=== PATIENT | female | born 1975 | race Caucasian/White ===

== ENCOUNTER 2017-08-20 05:36 | Day surgery (SDC) | payer OTHER ==
[2017-08-20] MEDS ORDERED: LIDOCAINE 1% 2 ML INJ ID PRN (06:36)
[2017-08-20] MEDS ORDERED: LR 1,000 ML IV ONE (06:36)
[2017-08-20] MEDS ORDERED: LIDOCAINE 1% 2 ML INJ ONE (06:37)
[2017-08-20] MEDS ORDERED: PREGABALIN 150 MG CAP PO ONE (06:38)
[2017-08-20] MEDS ORDERED: ACETAMINOPHEN 500 MG TAB PO ONE (06:38)
[2017-08-20] MEDS ORDERED: ceFAZolin 2 GM/SWFI 2 GM/20 ML SYR IVP ONE (06:38)
--- NOTE | 2017-08-20 06:38 | PDHPUP ---
History & Physical Update H&P update statement: This history and physical update is based on an assessment of the patient which was completed after admission or registration (within 24 hours), but prior to the surgery/procedure. H&P update: no change in patient's condition since H&P completed
[2017-08-20] MEDS ORDERED: fentaNYL 250 MCG/5 ML INJ ONE (06:48)
[2017-08-20] MEDS ORDERED: PROPOFOL/EMULSION 500 MG/50 ML BOTTLE IV ONE ×2 (06:48→06:51)
[2017-08-20] MEDS ORDERED: MIDAZOLAM 2 MG/2 ML VIAL IVP ONE (06:49)
[2017-08-20] MEDS ORDERED: EPINEPHrine 30 MG/30 ML MDV (0.1 MG/0.1 ML) ONE (06:56)
[2017-08-20] MEDS ORDERED: BUPIVACAINE 0.25% 30 ML SDV ONE (06:56)
[2017-08-20] MEDS ORDERED: SCOPOLAMINE HYDROBROMIDE 1 MG/3 DAYS PATCH TD ONE (07:13)
--- NOTE | 2017-08-20 07:13 | PDGENHP ---
History and Physical - Chief Complaint Right hip pain - History of Present Illness 1. Bilateral~Femoroacetabular impingement (ANA) Cam type, with~resultant labral tear; RIGHT SIDE SYMPTOMATIC 2. RIGHT GT bursitis HISTORY OF PRESENT ILLNESS: Maliis a 42 y.o.~very ~active female~who I have had the pleasure to consult on today. I have enjoyed meeting her. She~lives in [place]. ~Maliworks as a [employer]. ~She~is partnered; she~has no~children. ~Mali enjoys fotobabble triathlon, skiing, hiking, endurance sports. Judith's right~hip pain started in 2008, with no~recalled trauma or injury, and with no~previous complaints. Malidoes not have~a known history of hip dysplasia. Presentation today is of lateral right~hip pain. ~The hip does~wake her~at night and does~click and catch on her. Sitting can be uncomfortable~for her. Malidoes~report suffering from lower back pain episodes. Malihas~participated in physical therapy for approximately one year and has~ tried other conservative measures including hip injections (3 x GT bursa temporary 2008, 2015, 2017), PRP in RIGHT hip joint that Dr. Carrillo (with some relief)~dry needling, chiropractic treatments and massage therapy. She~has~ received sufficient symptomatic improvement. Malihas~utilized medication for pain management, including NSAID. Mali has used medication for 7 months. Malidenies issues with the left~hip. ~ Maliunderstands that she~has a hip and pelvis problem which should be researched and wishes to get a better understanding of her~hip status, followed by an establishment of a treatment strategy, hoping she~would be able to get back to her~well being active life. History: Past medical history: ~ None which is relevant Relevant familial history: Father - Heart Disease ~~~~~~~~~~~~~~~~~~~~~~~~~~~~~~~~~~~~~~~Mother - Diabetic Past surgical history: No. Surgery Anesthesia Year Outcome 1 Right Ankle Peroneal Repair GA 02/2014 Good 2 Right Ankle Neuroma GA 07/2015 Good 3 Appendix GA 2005 Good Malidenies problematic issues with general anesthesia in the past. I have reviewed, verified and agree with the past medical, surgical, family and social history. Current Medications:~has a current medication list which includes the following prescription(s): atenolol, diclofenac sodium 1%, lidocaine 5% (700 mg/patch), montelukast, naproxen, and norgestrel-ethinyl estradiol. ALLERGIES:~has No Known Allergies. Objective: Physical Examination: Maliis 5~feet 6~inches tall and weighs 160~Lbs. Maliis AAO x3; she~is well-nourished, in NAD. Skin is warm and dry. ~Breathing is non-labored. ~CV with RRR by pulse. Abdomen is soft, NTND. Currently, she~walks with a normal~gait. Trendelenburg sign is negative~and proprioception is normal, both~sides. She~presents with mild~signs of joint laxity. Beightons Score: 0-2 Lower spine examination is negative~for sciatic or femoral nerve irritation with negative~SLR &~femoral stretch tests. Range of motion of the spine is normal~for flexion, extension, and rotations, with no~associated pain. Strength, Sensation and pulses are normal - bilaterally~except numbness on the top of right foot after foot surgery. Ankles and knees exams are normal~and no~mal-alignment is evident. She~has left~.25~cm short leg length discrepancy. Thigh circumference is symmetric~with no evidence for muscle atrophy~on both~ sides. Hip ROM (degrees): FL ER At 90~hip FL IR At 90~hip FL AB AD EX IR Neutral hip ER Neutral hip R 100 50 20 35 5 10 30 35-40 L 100 45 20 35 5 15 35 15 Specific hip and pelvis tests: Quadrant DEE Roll Add. Longus R +++ +++ + Negative L Negative Negative Negative Negative Glut. Med ITB Pos. Imp R +++ 5/5 strength Negative 5/5 strength Negative L Negative 5/5 strength Negative 5/5 strength Negative Squeeze test measured normal Bony Symphysis pubis is painful~to touch~while concentric activity of the rectus abdominis, does not~produce pain at its insertion. Ilio Psos specific tests are positive for pain during cycling for both hips~and remarkable for painful snap HF has no pain both hips. Anterior and lateral~capsule tenderness on the right. Greater trochanteric burse is minimally painful~on both hips. Piriformis tests: FAIR is negative, with no~local signs of neuritis related to sciatic nerve. SIJs examination is normal~with normal~DEE in relation and local tenderness. Hamstrings tests are negative~functional contraction and negative~tendinopathy both hips. On a daily basis, the following percentages reflect Judith's overall total pain : Deep hip: 70% Glut med: 30% Imaging: Radiology studies which I have personally reviewed, analyzed and measured are below: XR: AP of the hip and pelvis: Performed in a good~technique Coccyx at the level of the~pubic symphysis 0~degrees [place] Lines are preserved. Minimal~Pathological signs are seen in the Symphysis Pubis. Minimal~Pathological signs are seen at the Ischial tuberosity. ~ Specific measurements show: NSA~ LCE Sourcil~Angle Sharp's angle Lat. Cam Lat. Pincer C.Over~sign Head~Coverage % ATDmm R N 31 4 38 + - - N N L N 27 5 42 + - - N N Pos. wall sign ISS NAD ~~Dysplasia Comments R Negative Negative 16~mm Negative L Negative Negative 16~mm Negative Sclerosis Sup. Lat. OA Cysts Joint Space-WBZ Joint Space-Medial R Negative Negative Negative 3.3~mm 3.2~mm L Negative Negative Negative 3.7~mm 3.4~mm X Table lateral: Anterior cam lesion is seen~on both hips. Alpha Angle: ~ Right 68~dergrees Left 77~degrees MRI shows: good cartilage coverage, no bone edema, labral tear Impression and plan: Maliis a 42 y.o.~active female~suffering from symptomatic right~hip pain due to Bilateral~Femoroacetabular impingement (ANA) Cam type, with~resultant labral tear~causing significant disability to her~and altering her~sport and life activities. Physical examination, imaging, and her~story correspond with the diagnosis mentioned above. I explained that femoroacetabular impingement (ANA) arises due to a bony or soft tissue conflict between the femur (ball) and acetabulum (socket) caused by an abnormality in the shape of the hip joint. Over time, repetitive impingement can result in damage to the labrum and adjacent surface cartilage within the socket, ultimately giving rise to progressive osteoarthritis of the hip. I explained that although a labral tear can be a source of pain, it is rarely the root of the problem and typically occurs secondary to an underlying abnormality in the shape and mechanics of the hip joint. ~ I reviewed conservative treatment options for ANA including activity modification to avoid positions of impingement, physical therapy, non-steroidal anti-inflammatory medications, and various injections (corticosteroid and PRP) aimed at reducing inflammation in the hip joint or/and preventing dynamic impingement. PRP injections may promote healing and reduce symptoms in certain cases but it will not repair chronically damaged tissue. Although these measures may help to buy time and reduce current level of symptoms, they are not a definitive solution to the problem given the underlying abnormality in the shape of the hip joint. Patients who have failed conservative management and continue to experience symptoms are candidates for hip arthroscopy, a minimally invasive surgery that can definitively address the underlying problem. Hip arthroscopy typically includes treating the labrum with either repair or reconstruction of the torn labrum; as well as addressing the underlying abnormalities by restoring the normal shape to the hip joint. ~If the cartilage is damaged a Microfracture surgical procedure may also be necessary to help stimulate the growth of fibrocartilage. ~If a patient requires a labral reconstruction or a Microfracture, the initial rehabilitation from the surgery may take longer, but the remote computer terminal operator results are typically favorable. I reviewed the technical aspects of hip arthroscopy including risks, benefits, and expected course of recovery. Judith~understands that hip arthroscopy is a minimally invasive outpatient procedure carried out through small incisions on the outer aspect of the hip joint. During surgery, the labral tear will be identified and either repaired or reconstructed~using bone anchors and suture material. Additionally, any excessive bone will be removed with a high-speed harlan to reshape the hip joint and restore normal anatomy. Risks include infection, bleeding, injury to nearby nerves or vessels, stiffness, persistent pain, instability, venous thromboembolic disease, and traction related complications including temporary foot numbness. Rarely, revision surgery may be required to address these problems. Overall recovery takes approximately 4~ 8~months depending on the extent of damage and degree of repair. In the event that the labral tissue quality is inadequate for successful repair and healing, Maliunderstands that a labral reconstruction will be performed. This procedure entails placing a cadaver tissue graft within the hip joint and stabilizing it with bone anchors to build a new labrum. The overall recovery time for labral reconstruction is similar to that of labral repair, although the surgical procedure takes longer to perform. JudithLaurawill review the info presented. In order to obtain more detailed information regarding the alignment, orientation, and shape of the bony hip and pelvis I will order a CT scan to be performed. The results of the CT scan, including femoral torsion and acetabular version measured values and 3D images, will aid me in deciding on the best treatment strategy and surgical pre-planning. Maliwill contact us if she~wishes to pursue further treatment in the future. Maliis happy with this plan. I have also supplied her~with handouts, outlining the expected surgical treatment and rehab involved. I wish~Judith~all the best, ~~ Argenis Noriega ATC History Information - Allergies/Home Medication List Allergies/Adverse Reactions: No Known Allergies Allergy (Verified 07/20/17 15:14) Home Medications: Atenolol 07/20/17 [Last Taken 1 Day Ago ~08/19/17] Singulair 07/20/17 [Last Taken 1 Day Ago ~08/19/17] I have personally reviewed and updated: medical history - Social History Smoking Status: Never smoked Review of Systems Review of Systems: Physical Exam Physical Exam: Temp Pulse Resp BP Pulse Ox 37.0 C 65 18 95/58 L 95 08/20/17 07:08 08/20/17 07:08 08/20/17 07:08 08/20/17 07:08 08/20/17 07:08
[2017-08-20] MEDS ORDERED: SCOPOLAMINE HYDROBROMIDE 1 MG/3 DAYS PATCH TD SCH (07:15)
--- NOTE | 2017-08-20 07:16 | PDANEPAE ---
ANE History of Present Illness 42 year old female for Right hip arthroscopy, labral repair. History of asthma and migraines. ANE Past Medical History - Cardiovascular History Hx Hypertension: No Hx Arrhythmias: No Hx Chest Pain: No Hx Coronary Artery / Peripheral Vascular Disease: No Hx CHF / Valvular Disease: No Hx Palpitations: No - Pulmonary History Hx Asthma/Reactive Airway Disease: Yes Hx Sleep Apnea: No Sleep Apnea Screening Result - Last Documented: Negative Pulmonary History Comment: ALLERGY AND EXERCISE INDUCED ASTHMA - Neurologic History Hx Cerebrovascular Accident: No Hx Seizures: No Hx Dementia: No - Endocrine History Hx Diabetes: No - Renal History Hx Renal Disorders: No - Liver History Hx Hepatic Disorders: No - Neurological & Psychiatric Hx Hx Neurological and Psychiatric Disorders: No - Cancer History Hx Cancer: No - Congenital Disorder History Hx Congenital Disorders: No - GI History Hx Gastrointestinal Disorders: Yes Gastrointestinal History Comment: IBS - Other Health History Other Health History: NONE - Chronic Pain History Chronic Pain: No - Surgical History Prior Surgeries: 2 ANKLE SURGERIES ANE Review of Systems Review of systems is: negative Review of Systems: - Exercise capacity METS (RN): 6 METS ANE Patient History - Allergies Allergies/Adverse Reactions: No Known Allergies Allergy (Verified 07/20/17 15:14) - Home Medications Home Medications: Atenolol 07/20/17 [Last Taken 1 Day Ago ~08/19/17] Singulair 07/20/17 [Last Taken 1 Day Ago ~08/19/17] - NPO status NPO Since - Liquids (Date): 08/19/17 NPO Since - Liquids (Time): 23:30 NPO Since - Solids (Date): 08/19/17 NPO Since - Solids (Time): 21:00 - Smoking Hx Smoking Status: Never smoked - Family Anes Hx Family Hx Anesthesia Complications: NONE ANE Labs/Vital Signs - Vital Signs Blood Pressure: 95/58 Heart Rate: 65 Respiratory Rate: 18 O2 Sat (%): 95 Height: 167.64 cm Weight: 72.575 kg ANE Physical Exam - Airway Neck exam: FROM Mallampati Score: Class 2 Mouth exam: normal dental/mouth exam - Pulmonary Pulmonary: no respiratory distress - Cardiovascular Cardiovascular: regular rate and rhythym - ASA Status ASA Status: I ANE Anesthesia Plan Anesthesia Plan: general endotracheal anesthesia
[2017-08-20] MEDS ORDERED: ALBUTEROL 3 ML DEYVIAL IH PRN (07:58)
[2017-08-20] MEDS ORDERED: NALOXONE HCL 0.4 MG/ML INJ IVP PRN (07:58)
[2017-08-20] MEDS ORDERED: ONDANSETRON 4 MG/2 ML VIAL IVP PRN (07:58)
[2017-08-20] MEDS ORDERED: PHENYLEPHRINE HCL 100 MCG/ML SYR IVP PRN (07:58)
[2017-08-20] MEDS ORDERED: LABETALOL HCL 5 MG/ML 20 ML MDV IVP PRN (07:58)
[2017-08-20] MEDS ORDERED: epHEDrine SULFATE 10 MG/ML SYR IVP PRN (07:58)
[2017-08-20] MEDS ORDERED: PROMETHAZINE HCL 25 MG/ML INJ IVP PRN (07:58)
[2017-08-20] MEDS ORDERED: LR 500 ML IV PRN (07:58)
[2017-08-20] MEDS ORDERED: HYDROmorphONE/DILAUDID 1 MG/ML INJ IVP PRN (07:58)
[2017-08-20] MEDS ORDERED: HYDROCODONE/APAP 5/325 TAB PO PRN (07:58)
[2017-08-20] MEDS ORDERED: PROPOFOL 200 MG/20 ML VIAL ONE (10:46)
[2017-08-20] MEDS ORDERED: HYDROmorphONE/DILAUDID 1 MG/ML INJ ONE (12:12)
[2017-08-20] MEDS ORDERED: fentaNYL 100 MCG/2 ML INJ ONE (12:13)
[2017-08-20] MEDS: fentaNYL 100 MCG/2 ML INJ IVP PRN ×3 (12:15→12:45)
[2017-08-20] MEDS ORDERED: HYDROCODONE/APAP 5/325 TAB ONE (12:28)
--- NOTE | 2017-08-20 13:14 | POSTANESTH ---
Post Anesthetic Evaluation Cardiovascular Status: Normal, Stable Respiratory Status: Normal, Stable Level of Consciousness/Mental Status: Can Participate in Eval Pain Control: Adequate, Prn Tx Ordered Nausea/Vomiting Control: Adequate, Prn Tx Ordered Complications Possibly Related to Anesthesia: None Noted
[2017-08-20 13:46] VITALS: BP 93/51; PULSE 53; RESP 14; O2SAT 93
[2017-08-20 14:15] VITALS: TEMP 97.8
[2017-08-23] MEDS ORDERED: PATCH REMOVAL 1 EA PATCH TD SCH (07:13)
== END 2017-08-20 14:15 | disposition home or self-care (01) ==
LOC: FSGY 05:36
PROVIDERS: ATTEND Orthopaedic Surgery Sports Medicine
PROC: 0SB94ZZ Excision of Right Hip Joint, Percutaneous Endoscopic Approach (ICD-10-PCS; principal; 2017-08-20 07:15)
PROC: 0SQ94ZZ Repair Right Hip Joint, Percutaneous Endoscopic Approach (ICD-10-PCS; principal; 2017-08-20 07:15)
PROC: 0QQ64ZZ Repair Right Upper Femur, Percutaneous Endoscopic Approach (ICD-10-PCS; principal; 2017-08-20 07:15)
DX: S73.191A Other sprain of right hip, initial encounter (principal); M25.851 Other specified joint disorders, right hip; M70.61 Trochanteric bursitis, right hip
CPT/HCPCS: C1713; J0171; J0690; J1170; J2250; J2704; J3010